=== PATIENT | female | born 1980 | race Caucasian/White ===

== ENCOUNTER 2016-12-11 12:05 | Emergency (ER) | payer MEDICAID ==
[~2016-12-11 12:05] MED LIST: ADVIL LIQUI-GE200 M1 PO; BACTRIM DS 8001 TA1 PO; DOXYCYCLINE 10100 MG PO; NO HOME MEDICATIONS; NORCO 325 MG-51 TAB PO; TYLENOL 650MG650 M2
[2016-12-11] MEDS ORDERED: OXYCODONE5 M1 PO (13:01)
== END 2016-12-11 13:08 | disposition home or self-care (01) ==
LOC: ED 12:05
DX: S86.812A Strain of other muscle(s) and tendon(s) at lower leg level, left leg, initial encounter (principal); Y93.9 Activity, unspecified; B18.2 Chronic viral hepatitis C; F19.21 Other psychoactive substance dependence, in remission

== ENCOUNTER 2017-03-05 10:12 | Emergency (ER) | payer MEDICAID ==
[~2017-03-05 10:12] MED LIST changes: +OXYCODONE5 M1 PO
[2017-03-05] MEDS ORDERED: OXYCODONE HCL10 M1 PO (13:02)
[2017-03-05 13:09] VITALS: BP 133/88
== END 2017-03-05 13:13 | disposition home or self-care (01) ==
LOC: ED 10:12
DX: S89.91XA Unspecified injury of right lower leg, initial encounter (principal); M25.561 Pain in right knee; X58.XXXA Exposure to other specified factors, initial encounter

== ENCOUNTER 2017-07-28 09:54 | Emergency (ER) | payer SELFPAY ==
[~2017-07-28] VITALS: Ht 175.3 cm; Wt 88.6 kg
[~2017-07-28 09:54] MED LIST changes: +OXYCODONE HCL10 M1 PO
[2017-07-28] MEDS ORDERED: MUCINEX DM 60 M1 TER PO (10:03)
[2017-07-28] MEDS ORDERED: OXYCODONE PO (10:26)
[2017-07-28] MEDS ORDERED: AMOXICILLIN875 MG PO (10:26)
[2017-07-28 11:17] VITALS: BP 136/82
== END 2017-07-28 10:35 | disposition home or self-care (01) ==
LOC: ED 09:54
DX: J06.9 Acute upper respiratory infection, unspecified (principal); K03.81 Cracked tooth; K08.89 Other specified disorders of teeth and supporting structures

== ENCOUNTER 2017-11-29 09:57 | Emergency (ER) | payer SELFPAY ==
[~2017-11-29] VITALS: Ht 170.2 cm; Wt 86.4 kg
[~2017-11-29 09:57] MED LIST changes: +AMOXICILLIN875 MG PO; +MUCINEX DM 60 M1 TER PO; +OXYCODONE PO
[2017-11-29] MEDS ORDERED: AMOXICILLIN 50500 MG PO (10:39)
[2017-11-29] MEDS ORDERED: NORCO 325 MG-51 TA1 PO (10:39)
[2017-11-29 10:51] VITALS: BP 127/80
== END 2017-11-29 10:53 | disposition home or self-care (01) ==
LOC: ED 09:57
DX: K08.89 Other specified disorders of teeth and supporting structures (principal); K03.81 Cracked tooth

== ENCOUNTER 2017-12-11 11:07 | Emergency (ER) | payer SELFPAY ==
[~2017-12-11] VITALS: Ht 170.2 cm; Wt 86.4 kg
[~2017-12-11 11:07] MED LIST changes: +AMOXICILLIN 50500 MG PO; +NORCO 325 MG-51 TA1 PO
[2017-12-11 11:13] VITALS: BP 130/100
== END 2017-12-11 11:42 | disposition left against medical advice (07) ==
LOC: ED 11:07
DX: Z91.19 Patient's noncompliance with other medical treatment and regimen (principal); R07.0 Pain in throat; Z53.21 Procedure and treatment not carried out due to patient leaving prior to being seen by health care provider; Z88.5 Allergy status to narcotic agent; Z88.2 Allergy status to sulfonamides; Z88.8 Allergy status to other drugs, medicaments and biological substances; K08.89 Other specified disorders of teeth and supporting structures

== ENCOUNTER 2018-07-27 15:04 | Emergency (ER) | payer SELFPAY ==
[~2018-07-27] VITALS: Ht 170.2 cm; Wt 8.6 kg
[~2018-07-27 15:04] MED LIST changes: +AMOXIL500 M1 PO
[2018-07-27] MEDS ORDERED: CYCLOBENZAPRINE10 M1 PO (16:10)
[2018-07-27] MEDS ORDERED: NORCO 325 MG-51 TA1 PO (16:10)
[2018-07-27] MEDS ORDERED: IBU800 M1 PO (16:11)
[2018-07-27 16:29] VITALS: BP 120/83
== END 2018-07-27 16:29 | disposition home or self-care (01) ==
LOC: ED 15:04
DX: S29.012A Strain of muscle and tendon of back wall of thorax, initial encounter (principal); X50.0XXA Overexertion from strenuous movement or load, initial encounter

== ENCOUNTER 2018-07-31 15:09 | Emergency (ER) | payer SELFPAY ==
[~2018-07-31 15:09] MED LIST changes: +CYCLOBENZAPRINE10 M1 PO; +IBU800 M1 PO
[2018-07-31] MEDS ORDERED: KETOROLAC10 MG PO (16:46)
[2018-07-31 16:56] VITALS: BP 132/91
== END 2018-07-31 17:00 | disposition home or self-care (01) ==
LOC: ED 15:09
DX: S29.012A Strain of muscle and tendon of back wall of thorax, initial encounter (principal); X50.0XXA Overexertion from strenuous movement or load, initial encounter; Y92.009 Unspecified place in unspecified non-institutional (private) residence as the place of occurrence of the external cause
CPT/HCPCS: J1885